=== PATIENT | female | born 1935 | race Caucasian/White ===

== ENCOUNTER 2019-02-21 16:09 | Emergency (ER) | payer OTHER, MEDICAID ==
[~2019-02-21] VITALS: Ht 157.5 cm; Wt 70.0 kg
[2019-02-21] MEDS ORDERED: ONDANSETRON HCL 4MG/2ML INJ IV STA (16:45)
[2019-02-21] MEDS ORDERED: SODIUM CHLORIDE 0.9% 1,000 ML IV ONE (16:45)
[2019-02-21] MEDS ORDERED: MORPHINE SULFATE 4 MG/ML CPJ (NOT FOR IM USE) IV STA (16:45)
[2019-02-21 17:08] LABS: BASOPHILS % 0.4 % (0.0-2.0); EOSINOPHILS % 1.6 % (0.0-5.0); HEMATOCRIT. 40.4 % (36.0-48.0); HEMOGLOBIN. 13.7 g/dL (12.0-16.0); LYMPHOCYTES % 27.7 % (20.0-50.0); MEAN CORPUSCULAR HEMOGLOBIN 30.9 pg (28.0-32.0); MEAN CORPUSCULAR VOLUME 91.1 fL (81.0-99.0); MEAN PLATELET VOLUME 8.9 fl (7.4-10.4); MONOCYTES % 5.3 % (2.0-8.0); PLATELET 190 x1000/uL (130-400); RED BLOOD CELL COUNT 4.44 mill/uL (4.2-5.4); RED CELL DISTRIBUTION WIDTH 14.2 % (11.6-14.6)
[2019-02-21 17:09] LABS: CHLORIDE 107 mEq/L (98-107)
[2019-02-21 17:18] LABS: PROTHROMBIN TIME 10.6 sec (9.6-11.0)
[2019-02-21 18:20] LABS: CLARITY URINE CLEAR (CLEAR); COLOR URINE YELLOW (YELLOW); KETONES URINE NEGATIVE (NEGATIVE); LEUKOCYTE ESTERASE URINE 1+ (NEGATIVE); NITRITE URINE NEGATIVE (NEGATIVE); OCCULT BLOOD URINE NEGATIVE (NEGATIVE); PH URINE 5.5 (4.5-8.0); PROTEIN URINE NEGATIVE (NEGATIVE); SPECIFIC GRAVITY URINE 1.014 (1.005-1.030); UROBILINOGEN URINE 0.2 E.U./dL (0.2-1.0)
[2019-02-21] MEDS ORDERED: CEFTRIAXONE 1 G PREMIX 50 ML IV SCH (18:30)
[2019-02-21] MEDS ORDERED: ONDANSETRON HCL 4MG/2ML INJ IV NR (18:30)
[2019-02-21 20:15] VITALS: BP 132/56
== END 2019-02-21 20:54 | disposition short-term general hospital (02) ==
LOC: ER 16:09 → CANBEDREQ 18:13 → ER 20:54
DX: K81.9 Cholecystitis, unspecified (principal)
CPT/HCPCS: 36415; 76705; 80053; 81003; 83690; 84484; 85025; 85610; 93005; 96361; 96365; 96375; 96376; 99285; J0696; J2270; J2405